=== PATIENT | male | born 1945 | race Caucasian/White ===

== ENCOUNTER → 2018-03-28 | Outpatient (CLI) | payer BC, MEDICARE ==
[~2018-03-28] MED LIST: CO Q-1010 MG PO; CO Q-10100 MG PO; DAILY VITAMIN1 EAC8 PO; FISH OIL300 MG PO; PROTONIX40 MG PO; SAW PALMETTO80 MG PO; VALTREX50 MG/ML PO; ZOFRAN8 MG PO; [UNRECOGNIZED DRUG - OTHER] PO
== END | disposition home or self-care (01) ==
LOC: CDC 11:18
DX: Z01.810 Encounter for preprocedural cardiovascular examination (principal); K40.90 Unilateral inguinal hernia, without obstruction or gangrene, not specified as recurrent; I49.1 Atrial premature depolarization
CPT/HCPCS: 93000

== ENCOUNTER 2018-04-10 05:38 | Day surgery (SDC) | payer BC, OTHER ==
[~2018-04-10] VITALS: Ht 190.5 cm; Wt 86.6 kg
[~2018-04-10 05:38] MED LIST changes: +FISH OIL 1,0001 EA10 PO
[2018-04-10 05:58] VITALS: BP 169/85
[2018-04-10] MEDS ORDERED: NORCO 5/3251 TABLET PO (09:42)
[2018-04-10 10:10] VITALS: BP 141/84
[2018-04-10 11:10] VITALS: BP 140/79
== END 2018-04-10 11:45 | disposition home or self-care (01) ==
LOC: SDC 05:38
PROC: 0YU54JZ Supplement Right Inguinal Region with Synthetic Substitute, Percutaneous Endoscopic Approach (ICD-10-PCS; principal; 2018-04-10)
DX: K40.90 Unilateral inguinal hernia, without obstruction or gangrene, not specified as recurrent (principal); E78.5 Hyperlipidemia, unspecified; D46.Z Other myelodysplastic syndromes; R94.31 Abnormal electrocardiogram [ECG] [EKG]
CPT/HCPCS: C1727; C1781; J0131; J0330; J0690; J1100; J1170; J2250; J2405; J2710; J3010; J7643